=== PATIENT | female | born 1980 ===

== ENCOUNTER → 2023-12-16 | Outpatient (CLI) | payer OTHER ==
[~2023-12-16] VITALS: Ht 162.6 cm; Wt 104.3 kg
== END | disposition home or self-care (01) ==
LOC: Rad HDHVI 09:04
PROVIDERS: ATTEND Internal Medicine Cardiovascular Disease
DX: I49.3 Ventricular premature depolarization (principal); R00.2 Palpitations; E78.00 Pure hypercholesterolemia, unspecified; Z82.49 Family history of ischemic heart disease and other diseases of the circulatory system; Z79.899 Other long term (current) drug therapy
CPT/HCPCS: 93017

== ENCOUNTER 2025-01-13 13:45 | Outpatient (CLI) | payer OTHER | END 2025-01-13 17:00 | disposition home or self-care (01) | LOC: Rad HDHVI 13:45 | PROVIDERS: ATTEND Internal Medicine Cardiovascular Disease | DX: I34.0 Nonrheumatic mitral (valve) insufficiency (principal); I10 Essential (primary) hypertension; I47.10 Supraventricular tachycardia, unspecified | CPT/HCPCS: 93306 ==